=== PATIENT | female | born 1960 | race Two or more races ===

== ENCOUNTER 2016-10-09 08:11 | Emergency (ER) | payer BC ==
--- NOTE | 2016-10-09 08:54 | ER Document Report ---
ED Neuro Symptoms/Deficit - General Chief Complaint: Numbness Stated Complaint: NUMBNESS IN FACE AND HANDS Time Seen by Provider: 10/09/16 08:25 Mode of Arrival: Ambulatory Information source: Patient Notes: Patient is a 55-year-old female with hypertension who presents to the ER today for numbness and tingling in the left side of her face near her mouth and fingertips on the left hand that she woke up with this morning. She denies any weakness anywhere, facial droop, injury, headache, blurred vision, history of stroke TRAVEL OUTSIDE OF THE [place] IN LAST 30 DAYS: No - Related Data Allergies/Adverse Reactions: No Known Allergies Allergy (Verified 10/09/16 08:15) Past Medical History - General Information source: Patient - Social History Smoking Status: Unknown if Ever Smoked Family History: Reviewed & Not Pertinent Patient has suicidal ideation: No Patient has homicidal ideation: No - Past Medical History Cardiac Medical History: Reports: Hx Hypertension Renal/ Medical History: Denies: Hx Peritoneal Dialysis Psychiatric Medical History: Reports: Hx Depression Past Surgical History: Reports: Hx Hysterectomy - partial - Immunizations Hx Diphtheria, Pertussis, Tetanus Vaccination: No Hx Pneumococcal Vaccination: 05/16/11 Review of Systems - Review of Systems Constitutional: No symptoms reported EENT: No symptoms reported Cardiovascular: No symptoms reported Respiratory: No symptoms reported Gastrointestinal: No symptoms reported Genitourinary: No symptoms reported Female Genitourinary: No symptoms reported Musculoskeletal: No symptoms reported Skin: No symptoms reported Hematologic/Lymphatic: No symptoms reported Neurological/Psychological: See HPI Physical Exam - Vital signs Vitals: Temp Pulse Resp BP Pulse Ox 97.8 F 87 20 144/91 H 97 10/09/16 08:16 10/09/16 08:16 10/09/16 08:16 10/09/16 08:16 10/09/16 08:16 - Notes Notes: PHYSICAL EXAMINATION: GENERAL: Well-appearing and in no acute distress. HEAD: Atraumatic, normocephalic. EYES: Pupils equal round and reactive to light, extraocular movements intact, sclera anicteric, conjunctiva are normal. NECK: Normal range of motion, supple without lymphadenopathy LUNGS: CTAB and equal. No wheezes rales or rhonchi. HEART: Regular rate and rhythm without murmurs ABDOMEN: Soft, no tenderness. No guarding, no rebound EXTREMITIES: Normal range of motion, no pitting edema. No cyanosis. NEUROLOGICAL: no facial droop,Cranial nerves grossly intact. normal rhomberg testing, normal heel to lake testing, Normal sensory/motor exams. Equal strength bilaterally PSYCH: Normal mood, normal affect. SKIN: Warm, Dry, normal turgor, no rashes or lesions noted Course - Re-evaluation Re-evalutation: 10/09/16 10:35 Lab work is unremarkable today including normal cardiac enzymes. CT of the head was negative for any acute pathology. I did advise pt that she may be having a TIA and she needs to be monitored for increased risk of stroke in the next 48 hours, but she declines staying here and promises to return if she has any worsening symptoms such as headache, blurred vision, weakness, facial droop , etc. She lives 10 mins away. She promises to take her blood pressure medication daily as prescribed as she was not before. - Vital Signs Vital signs: Temp Pulse Resp BP Pulse Ox 97.8 F 87 15 154/87 H 100 10/09/16 08:16 10/09/16 09:09 10/09/16 10:58 10/09/16 10:58 10/09/16 11:01 - Laboratory Result Diagrams: 10/09/16 08:55 10/09/16 08:55 Laboratory results interpreted by me: 10/09/16 10/09/16 10/09/16 08:55 08:55 08:55 RDW 14.2 H Glucose 148 H Urine Protein 30 H Urine Blood MODERATE H Discharge - Discharge Clinical Impression: Numbness and tingling in left hand, Numbness and tingling of left side of face Condition: Stable Disposition: HOME, SELF-CARE Instructions: Transient Ischemic Attack ([facility]) Additional Instructions: TAKE YOUR BLOOD PRESSURE MEDICATION PRESCRIBED! Return immediately for any new or worsening symptoms. Follow up with primary care provider, call tomorrow to make followup appointment.
[2016-10-09 09:10] LABS: ABSOLUTE BASOPHILS # (AUTO) 0.1 10^3/uL (0.0-0.2); ABSOLUTE LYMPHOCYTES (AUTO) 2.2 10^3/uL (0.5-4.7); ABSOLUTE MONOCYTES (AUTO) 0.6 10^3/uL (0.1-1.4); ABSOLUTE NEUT (AUTO) 7.5 10^3/uL (1.7-8.2); BASOPHILS % (AUTO) 0.6 % (0-2); HEMATOCRIT 43.6 % (36.0-47.0); HEMOGLOBIN 14.7 g/dL (12.0-15.5); HGB HCT DIFFERENCE 0.5; LYMPHOCYTES % (AUTO) 21.2 % (13-45); MEAN CORPUSCULAR HEMOGLOBIN 29.4 pg (27.0-33.4); MEAN CORPUSCULAR HGB CONC 33.6 g/dL (32.0-36.0); MEAN CORPUSCULAR VOLUME 88 fl (80-97); MONOCYTES % (AUTO) 5.6 % (3-13); RED BLOOD COUNT 4.98 10^6/uL (3.72-5.28); RED CELL DISTRIBUTION WIDTH 14.2 % (11.5-14.0); SEGMENTED NEUTROPHILS % (AUTO) 72.6 % (42-78); WHITE BLOOD COUNT 10.3 10^3/uL (4.0-10.5)
--- NOTE | 2016-10-09 09:20 | RADIOLOGY REPORT (SQ) ---
EXAM DESCRIPTION: CT HEAD WITHOUT COMPLETED DATE/TIME: 10/09/2016 9:12 am REASON FOR STUDY: numbness/tingling left sided, htn COMPARISON: None. TECHNIQUE: Axial images acquired through the brain without intravenous contrast. Images reviewed wi th bone, brain and subdural windows. Images stored on PACS. All CT scanners at this facility use dose modulation, iterative reconstruction, and/or weight based d osing when appropriate to reduce radiation dose to as low as reasonably achievable (ALARA). [facility]: Dose Right [facility]: CareDose [facility]: Dose Right [facility]: Teradose 4D [facility]: [address] RADIATION DOSE: 64.61 mGy. LIMITATIONS: None. FINDINGS: VENTRICLES: Normal size and contour. CEREBRUM: No masses. No hemorrhage. No midline shift. Normal ramos/white matter differentiation. N o evidence for acute infarction. CEREBELLUM: No masses. No hemorrhage. No alteration of density. No evidence for acute infarction. EXTRAAXIAL SPACES: No fluid collections. No masses. ORBITS AND GLOBE: No intra- or extraconal masses. Normal contour of globe without masses. CALVARIUM: No fracture. PARANASAL SINUSES: No fluid or mucosal thickening. SOFT TISSUES: No mass or hematoma. OTHER: No other significant finding. IMPRESSION: NORMAL BRAIN CT WITHOUT CONTRAST. TECHNICAL DOCUMENTATION: JOB ID: [id number] Quality ID # [id number]: Final reports with documentation of one or more dose reduction techniques (e.g., Au tomated exposure control, adjustment of the mA and/or kV according to patient size, use of iterative reconstruction technique) 2010 [employer]- All Rights Reserved
[2016-10-09 09:25] LABS: ALANINE AMINOTRANSFERASE 26 U/L (9-52); ALBUMIN 3.9 g/dL (3.5-5.0); ALKALINE PHOSPHATASE 92 U/L (38-126); ANION GAP 11 (5-19); ASPARTATE AMINO TRANSFERASE 22 U/L (14-36); BILIRUBIN,DIRECT 0.4 mg/dL (0.0-0.4); BILIRUBIN,TOTAL 0.5 mg/dL (0.2-1.3); BLOOD UREA NITROGEN 13 mg/dL (7-20); CARBON DIOXIDE 27 mmol/L (22-30); CHLORIDE 106 mmol/L (98-107); CREATINE KINASE 58 U/L (30-135); GLUCOSE 148 mg/dL (75-110); POTASSIUM 3.9 mmol/L (3.6-5.0); SODIUM 143.5 mmol/L (137-145); TOTAL PROTEIN 6.8 g/dL (6.3-8.2)
[2016-10-09 09:27] LABS: APPEARANCE,URINE SLIGHTLY-CLOUDY; BILIRUBIN,URINE NEGATIVE (NEGATIVE); GLUCOSE, URINE NEGATIVE (NEGATIVE); KETONES,URINE NEGATIVE (NEGATIVE); LEUKOCYTE ESTERASE,URINE NEGATIVE (NEGATIVE); NITRITE,URINE NEGATIVE (NEGATIVE); PROTEIN,URINE 30 mg/dL (NEGATIVE); URINE SPECIFIC GRAVITY 1.008; UROBILINOGEN,URINE NEGATIVE mg/dL (<2.0)
[2016-10-09 09:37] LABS: CREATINE KINASE MB 0.38 ng/mL (<4.55)
[2016-10-09 09:40] LABS: TROPONIN I < 0.012 ng/mL
[2016-10-09 11:01] VITALS: BP 154/87
--- NOTE | 2016-10-09 17:03 | EKG REPORT ---
SEVERITY:- NORMAL ECG - SINUS RHYTHM : Confirmed by: Ashutosh Cagle MD 09-Oct-2016 17:02:19
== END 2016-10-09 11:01 | disposition home or self-care (01) ==
LOC: ER 08:11
DX: R20.0 Anesthesia of skin (principal); R20.2 Paresthesia of skin; I10 Essential (primary) hypertension; Z90.712 Acquired absence of cervix with remaining uterus
CPT/HCPCS: 36415; 70450; 80053; 81001; 82550; 82553; 84484; 85025; 93005; 93010; 99284

== ENCOUNTER 2018-09-29 00:27 | Emergency (ER) | payer SELFPAY ==
--- NOTE | 2018-09-29 01:24 | ER Document Report ---
ED Blood Pressure Problem - General Chief Complaint: High Blood Pressure Stated Complaint: BLOOD PRESSURE ISSUE Time Seen by Provider: 09/29/18 01:18 Notes: 57-year-old female with untreated hypertension presents to the emergency department for elevated blood pressure. She said she was feeling "off" and anxious and on her way home from work from [place] stop [employer] to check her blood pressure and it was 190/109. She decided to come to the emergency department for treatment. She denies any fevers or headache, vision changes of blindness, neck stiffness, chest pain, altered mental status, dizziness or lightheadedness, shortness of breath, nausea or vomiting, abdominal pain, flank pain, inability to urinate. She does not have a primary care doctor TRAVEL OUTSIDE OF THE [place] IN LAST 30 DAYS: No - Related Data Allergies/Adverse Reactions: No Known Allergies Allergy (Verified 10/09/16 08:15) Past Medical History - Social History Smoking Status: Current Every Day Smoker Family History: Reviewed & Not Pertinent - Past Medical History Cardiac Medical History: Reports: Hx Hypertension Renal/ Medical History: Denies: Hx Peritoneal Dialysis Psychiatric Medical History: Reports: Hx Depression Past Surgical History: Reports: Hx Hysterectomy - partial - Immunizations Hx Diphtheria, Pertussis, Tetanus Vaccination: No Hx Pneumococcal Vaccination: 05/16/11 Review of Systems - Review of Systems Constitutional: See HPI EENT: See HPI Cardiovascular: See HPI Respiratory: See HPI Gastrointestinal: See HPI Genitourinary: See HPI Female Genitourinary: No symptoms reported Musculoskeletal: No symptoms reported Skin: No symptoms reported Hematologic/Lymphatic: No symptoms reported Neurological/Psychological: See HPI Physical Exam - Vital signs Vitals: Temp Pulse BP Pulse Ox 98.1 F 84 213/94 H 98 09/29/18 00:34 09/29/18 00:34 09/29/18 00:34 09/29/18 00:34 - Notes Notes: PHYSICAL EXAMINATION: Reviewed vital signs and charting by RN GENERAL: Well-appearing, well-nourished and in no acute distress. HEAD: Atraumatic, normocephalic. No scalp deformity, depression, or crepitance. EYES: Pupils are 3 mm and equal/round/reactive to light, extraocular movements intact, sclera anicteric, conjunctiva are normal. NECK: Normal range of motion LUNGS: Breath sounds present, equal, and clear to auscultation bilaterally. No wheezes, rales, or rhonchi. HEART: Regular rate and rhythm without murmurs, rubs, or gallops. 2+ peripheral pulses. Normal capillary refill. BACK: Normal contour, no midline tenderness. No CVAT rectal exam deferred. EXTREMITIES: Normal range of motion, no pitting or edema. No cyanosis. NEUROLOGICAL: No focal neurological deficits. Moves all extremities spontaneously and on command. PSYCH: Normal mood, normal affect. No suicidal thoughts/ideations. No homocidal thoughts/ideations. No hallucinations. SKIN: Warm, dry, normal turgor, no rashes or lesions noted. Course - Re-evaluation Re-evalutation: 09/29/18 01:24 Overall well-appearing. Patient has no symptoms to indicate concern for any endorgan damage. At this time patient has asymptomatic hypertension requiring no emergent intervention. I did give her a two-week prescription for hydrochlorothiazide for which she was previously on. I gave her 12.5 mg daily as an entry dose. She will also get information for the [facility] in her discharge. She is stable for discharge - Vital Signs Vital signs: Temp Pulse Resp BP Pulse Ox 98.1 F 84 213/94 H 98 09/29/18 00:34 09/29/18 00:34 09/29/18 00:34 09/29/18 00:34 Discharge - Discharge Clinical Impression: High blood pressure Qualifiers: Hypertension type: unspecified Qualified Code(s): I10 - Essential (primary) hypertension Condition: Good Disposition: HOME, SELF-CARE Instructions: High Blood Pressure ([facility]), Hydrochlorothiazide ([facility]) Additional Instructions: You are seen in the emergency department this morning for blood pressure. Because there was no evidence of any endorgan damage it is not necessary to treat the condition emergently here. I did give you a 2-week prescription for medication called hydrochlorothiazide. You can take it daily. I only gave you to a prescription to establish care with the [facility]. If you develop the worst headache of your life, get blurred vision or blindness, pa ralysis or numbness in one or more of your extremities, develop severe chest pain, acute shortness of breath, lose the inability to urinate and have flank pain, please immediately return to the emergency department as these are symptoms of endorgan damage. Prescriptions: Hydrochlorothiazide 12.5 mg PO DAILY #14 tablet
[2018-09-29] MEDS ORDERED: HYDROCHLOROTHIAZIDE 12.5 MG TABLET PO ONE (01:26)
[2018-09-29 01:58] VITALS: BP 186/93
== END 2018-09-29 01:40 | disposition home or self-care (01) ==
LOC: ER 00:27
DX: I10 Essential (primary) hypertension (principal); F41.9 Anxiety disorder, unspecified; F17.200 Nicotine dependence, unspecified, uncomplicated; Z90.710 Acquired absence of both cervix and uterus
CPT/HCPCS: 99283

== ENCOUNTER 2019-11-07 14:10 | Emergency (ER) | payer BC ==
[2019-11-07 14:34] LABS: ABSOLUTE BASOPHILS # (AUTO) 0.1 10^3/uL (0.0-0.2); ABSOLUTE LYMPHOCYTES (AUTO) 2.4 10^3/uL (0.5-4.7); ABSOLUTE MONOCYTES (AUTO) 0.6 10^3/uL (0.1-1.4); BASOPHILS % (AUTO) 0.9 % (0-2); HEMATOCRIT 41.3 % (36.0-47.0); HEMOGLOBIN 14.3 g/dL (12.0-15.5); LYMPHOCYTES % (AUTO) 29.6 % (13-45); MEAN CORPUSCULAR HEMOGLOBIN 30.3 pg (27.0-33.4); MEAN CORPUSCULAR HGB CONC 34.6 g/dL (32.0-36.0); MEAN CORPUSCULAR VOLUME 88 fl (80-97); MONOCYTES % (AUTO) 7.1 % (3-13); PLATELET COUNT 258 10^3/uL (150-450); RED BLOOD COUNT 4.72 10^6/uL (3.72-5.28); RED CELL DISTRIBUTION WIDTH 14.8 % (11.5-14.0); SEGMENTED NEUTROPHILS % (AUTO) 62.4 % (42-78); TOTAL CELLS COUNTED % (AUTO) 100 %; WHITE BLOOD COUNT 8.1 10^3/uL (4.0-10.5)
[2019-11-07 14:50] LABS: ALKALINE PHOSPHATASE 88 U/L (38-126); ANION GAP 7 (5-19); ASPARTATE AMINO TRANSFERASE 19 U/L (14-36); BILIRUBIN,TOTAL 0.4 mg/dL (0.2-1.3); BLOOD UREA NITROGEN 29 mg/dL (7-20); CALCIUM 9.9 mg/dL (8.4-10.2); CARBON DIOXIDE 25 mmol/L (22-30); CHLORIDE 106 mmol/L (98-107); CREATINE KINASE 65 U/L (30-135); GLUCOSE 148 mg/dL (75-110); POTASSIUM 3.6 mmol/L (3.6-5.0); TOTAL PROTEIN 6.8 g/dL (6.3-8.2)
[2019-11-07 15:02] LABS: CREATINE KINASE MB 0.34 ng/mL (<4.55)
[2019-11-07 15:04] LABS: TROPONIN I < 0.012 ng/mL
--- NOTE | 2019-11-07 16:30 | RADIOLOGY REPORT (SQ) ---
EXAM DESCRIPTION: CHEST 2 VIEWS IMAGES COMPLETED DATE/TIME: 11/07/2019 4:15 pm REASON FOR STUDY: chest pain COMPARISON: 06/17/2015 NUMBER OF VIEWS: One view. TECHNIQUE: Single frontal radiographic view of the chest acquired. LIMITATIONS: None. FINDINGS: LUNGS AND PLEURA: No opacities, masses or pneumothorax. No pleural effusion. MEDIASTINUM AND HILAR STRUCTURES: No masses. Contour normal. HEART AND VASCULAR STRUCTURES: Heart normal in size. Normal vasculature. BONES: No acute findings. HARDWARE: None in the chest. OTHER: No other significant finding. IMPRESSION: NO SIGNIFICANT RADIOGRAPHIC FINDING IN THE CHEST. TECHNICAL DOCUMENTATION: JOB ID: [id number] 2010 [employer]- All Rights Reserved Reading location - IP/workstation name: [email or web address]
--- NOTE | 2019-11-07 17:02 | RADIOLOGY REPORT (SQ) ---
EXAM DESCRIPTION: CT HEAD WITHOUT IMAGES COMPLETED DATE/TIME: 11/07/2019 4:51 pm REASON FOR STUDY: eval for cause of facial numbness. rule out stroke COMPARISON: 10/09/2016 TECHNIQUE: Axial images acquired through the brain without intravenous contrast. Images reviewed wi th bone, brain and subdural windows. Additional sagittal and coronal reconstructions were generated. Images stored on PACS. All CT scanners at this facility use dose modulation, iterative reconstruction, and/or weight based d osing when appropriate to reduce radiation dose to as low as reasonably achievable (ALARA). [facility]: Dose Right [facility]: CareDose [facility]: Dose Right [facility]: Teradose 4D [facility]: [employer] RADIATION DOSE: CT Rad equipment meets quality standard of care and radiation dose reduction techniq ues were employed. CTDIvol: 53.2 mGy. DLP: 1044 mGy-cm. mGy. LIMITATIONS: None. FINDINGS: VENTRICLES: Normal size and contour. CEREBRUM: No masses. No hemorrhage. No midline shift. No evidence for acute infarction. Normal gra y/white matter differentiation. No areas of low density in the white matter. CEREBELLUM: No masses. No hemorrhage. No alteration of density. No evidence for acute infarction. EXTRAAXIAL SPACES: No fluid collections. No masses. ORBITS AND GLOBE: No intra- or extraconal masses. Normal contour of globe without masses. CALVARIUM: No fracture. PARANASAL SINUSES: No fluid or mucosal thickening. SOFT TISSUES: No mass or hematoma. OTHER: No other significant finding. IMPRESSION: NORMAL BRAIN CT WITHOUT CONTRAST. EVIDENCE OF ACUTE STROKE: NO. COMMENT: Quality ID # 436: Final reports with documentation of one or more dose reduction techniques (e.g., Automated exposure control, adjustment of the mA and/or kV according to patient size, use of iterative reconstruction technique) TECHNICAL DOCUMENTATION: JOB ID: [id number] 2010 [employer] All Rights Reserved Reading location - IP/workstation name: [email or web address]
--- NOTE | 2019-11-07 17:14 | ER Document Report ---
ED General - General Chief Complaint: Chest Pain > 30 Stated Complaint: CHEST PAIN Time Seen by Provider: 11/07/19 15:45 Primary Care Provider: TEENA MYERS MD [ACTIVE STAFF] - Follow up as needed BILLY DUVAL MD [ACTIVE STAFF] - Follow up as needed CLARISA CARLOS MD [ACTIVE STAFF] - Follow up as needed Mode of Arrival: Ambulatory Information source: Patient TRAVEL OUTSIDE OF THE [place] IN LAST 30 DAYS: No - HPI Onset: Other - chest pain started around 2pm. Numbness and tingling of face has been present for weeks Onset/Duration: Gradual Quality of pain: Pressure Severity: Mild Pain Level: 2 Associated symptoms: None Exacerbated by: Denies Relieved by: Denies Similar symptoms previously: No Recently seen / treated by doctor: No Notes: 58 year old female with a history of HTN here in the ER for several weeks of not feeling well, several weeks of mild facial numbness, and chest pains since 2PM today. The chest pain is what prompted the patient to come to the ER. The p atient denies radiation of chest pain to he arms, jaw, neck, or back. The patient denies nausea, vomiting, sweating, shortness of breath, trouble breathing. The patient hasnt seen a PCP in a very long time but she is currently on HCTZ for HTN (was prescribed by an urgent care). The patient says she had a stress test years ago but she is not sure what the results were since she was stopped early during the test. The patient never had a cardiac cath to follow up however. The patient is a smoker. - Related Data Allergies/Adverse Reactions: No Known Allergies Allergy (Verified 09/29/18 01:34) Home Medications: HCTZ Past Medical History - General Information source: Patient - Social History Smoking Status: Current Every Day Smoker Frequency of alcohol use: Rare Drug Abuse: None Family History: Reviewed & Not Pertinent Patient has homicidal ideation: No - Past Medical History Cardiac Medical History: Reports: Hx Hypertension Renal/ Medical History: Denies: Hx Peritoneal Dialysis Psychiatric Medical History: Reports: Hx Depression Past Surgical History: Reports: Hx Hysterectomy - Immunizations Hx Diphtheria, Pertussis, Tetanus Vaccination: No Hx Pneumococcal Vaccination: 05/16/11 Review of Systems - Review of Systems Constitutional: No symptoms reported EENT: No symptoms reported Cardiovascular: Chest pain Respiratory: No symptoms reported Gastrointestinal: No symptoms reported Genitourinary: No symptoms reported Female Genitourinary: No symptoms reported Musculoskeletal: No symptoms reported Skin: No symptoms reported Hematologic/Lymphatic: No symptoms reported Neurological/Psychological: Other - Dizziness, left sided facial numbness -: Yes All other systems reviewed and negative Physical Exam - Vital signs Vitals: Pulse Ox 97 11/07/19 14:24 - Notes Notes: GENERAL: Well-appearing, well-nourished and in no acute distress. HEAD: Atraumatic, normocephalic. EYES: Pupils equal round and reactive to light, extraocular movements intact, sclera anicteric, conjunctiva are normal. ENT: External ears normal, nares patent, oropharynx clear without exudates. Mo ist mucous membranes. NECK: Normal range of motion, supple without lymphadenopathy or JVD. LUNGS: Breath sounds clear to auscultation bilaterally and equal. No wheezes rales or rhonchi. HEART: Regular rate and rhythm without murmurs, rubs or gallops. ABDOMEN: Soft, nontender, normoactive bowel sounds. No guarding, no rebound. No masses appreciated. EXTREMITIES: Normal range of motion, no pitting or edema. No clubbing or cyanosis. NEUROLOGICAL: Cranial nerves II through XII grossly intact. Normal speech, normal gait. PSYCH: Normal mood, normal affect. SKIN: Warm, Dry, normal turgor, no rashes or lesions noted. Course - Re-evaluation Re-evalutation: 11/07/19 17:11 The patient is here for chest pain which started around 2PM. The patient also has been feeling dizzy over the last few weeks and she has noticed her blood p ressure has spiked to as high as 190 systolic over the last few weeks. The patient has also noticed some mild facial numbness over the last few weeks. CT of her head shows no acute process. First Trop is completely negative and EKG is unremarkable. Patient is a smoker and she does have HTN but she does not have other CAD risk factors. Patient has no PCP at the moment and she says she hasnt had a cardiac stress test in years. Plan will be to get 2 sets of negative Trops and refer patient to a PCP and Cardiology for outpatient treatment and work up. 11/07/19 19:30 The patient's second Trop was completely negative as well. Patient discharged and told to follow up with a PCP and [employer] [facility]. - Vital Signs Vital signs: Temp Pulse Resp BP Pulse Ox 98.1 F 14 132/74 H 96 11/07/19 14:28 11/07/19 18:01 11/07/19 18:01 11/07/19 18:01 - Laboratory Result Diagrams: 11/07/19 14:20 11/07/19 14:20 Laboratory results interpreted by me: 11/07/19 11/07/19 14:20 14:20 RDW 14.8 H BUN 29 H Est GFR ( Amer) 58 L Est GFR (MDRD) Non-Af 48 L Glucose 148 H - Diagnostic Test Radiology reviewed: Image reviewed, Reports reviewed - EKG Interpretation by Me EKG shows normal: Sinus rhythm, E[place], QRS Complexes, ST-T Waves Rate: Normal Rhythm: NSR Additional EKG results interpreted by me: 11/07/19 17:11 prolonged QT Discharge - Discharge Clinical Impression: Paresthesia Chest pain Qualifiers: Chest pain type: unspecified Qualified Code(s): R07.9 - Chest pain, unspecified Condition: Stable Disposition: HOME, SELF-CARE Instructions: Chest Pain of Unclear Cause ([facility]), Numbness or Paresthesia ([facility]) Additional Instructions: Follow up with a primary care doctor for management of your blood pressure and basic preventative medicine. You should also follow up with a [employer] [facility] such as with Dr. Myers for an outpatient cardiac stress test. You had blood work, a chest xray, and an EKG in the ER all which were within normal limits. Return to an ER for persistent chest pain, chest pain with nausea, vomiting, sweating, radiation of chest pain to your arm or jaw or if you are worse. Referrals: BILLY DUVAL MD [ACTIVE STAFF] - Follow up as needed CLARISA CARLOS MD [ACTIVE STAFF] - Follow up as needed TEENA MYERS MD [ACTIVE STAFF] - Follow up as needed
[2019-11-07 19:39] VITALS: BP 154/91
--- NOTE | 2019-11-08 10:02 | EKG REPORT ---
SEVERITY:- ABNORMAL ECG - SINUS RHYTHM PROBABLE LEFT ATRIAL ABNORMALITY BORDERLINE T ABNORMALITIES, ANT-LAT LEADS BORDERLINE PROLONGED QT INTERVAL : Confirmed by: Linda Blackwood 08-Nov-2019 10:01:11
== END 2019-11-07 19:52 | disposition home or self-care (01) ==
LOC: ER 14:10
DX: R20.2 Paresthesia of skin (principal); R07.9 Chest pain, unspecified; F17.200 Nicotine dependence, unspecified, uncomplicated; I10 Essential (primary) hypertension; Z90.710 Acquired absence of both cervix and uterus
CPT/HCPCS: 36415; 70450; 71046; 80053; 82550; 82553; 84484; 85025; 93005; 93010; 99285